=== PATIENT | female | born 1935 ===

== ENCOUNTER → 2023-04-11 10:12 | Outpatient (BNVA) | payer MEDICARE, SELFPAY | PROVIDERS: PCP Family Medicine; Referring Provider Family Medicine; Visit Provider Specialist | DX: G24.01 Drug induced subacute dyskinesia (principal); M46.1 Sacroiliitis, not elsewhere classified | CPT/HCPCS: 96372; 99203 ==

== ENCOUNTER → 2024-04-09 13:09 | Outpatient (BNVA) | payer MEDICARE, SELFPAY | PROVIDERS: PCP Family Medicine; Referring Provider Family Medicine; Visit Provider Specialist | DX: M46.1 Sacroiliitis, not elsewhere classified (principal); R29.90 Unspecified symptoms and signs involving the nervous system; M79.10 Myalgia, unspecified site; Z71.89 Other specified counseling | CPT/HCPCS: 20550; 99213; J1010; J3490 ==